=== PATIENT | female | born 1990 | race American Indian/Alaskan Native ===

== ENCOUNTER 2017-02-03 08:36 | Emergency (ER) | payer OTHER, MEDICAID ==
[2017-02-03 08:46] VITALS: BP 102/58
== END 2017-02-03 09:56 | disposition left against medical advice (07) ==
LOC: ED 08:36
DX: O26.892 Other specified pregnancy related conditions, second trimester (principal); M25.551 Pain in right hip; Z3A.18 18 weeks gestation of pregnancy; Z53.21 Procedure and treatment not carried out due to patient leaving prior to being seen by health care provider

== ENCOUNTER 2017-06-22 22:51 | Outpatient (CLI) | payer MEDICAID, OTHER ==
[2017-06-23] MEDS ORDERED: VISTARIL PO ONE (00:50)
== END 2017-06-23 00:54 | disposition home or self-care (01) ==
LOC: TRG 22:51
PROVIDERS: ATTEND Obstetrics & Gynecology Gynecology
DX: O47.1 False labor at or after 37 completed weeks of gestation (principal); Z3A.38 38 weeks gestation of pregnancy
CPT/HCPCS: Q0177

== ENCOUNTER 2017-06-30 23:40 | Outpatient (CLI) | payer MEDICAID ==
[2017-07-01] MEDS ORDERED: NITRATEST PAPER MC ONE (00:10)
[2017-07-01 00:11] VITALS: BP 117/60
--- NOTE | 2017-07-01 07:18 | Ultrasound Report ---
BIOPHYSICAL PROFILE: INDICATION: well being. COMPARISON: None similar at this institution. TECHNIQUE: Transabdominal ultrasound with Doppler interrogation. 2 - breathing movements 2 - movements 2 - posture and tone 2 - Qualitative amniotic fluid volume 8 - TOTAL SCORE OF POSSIBLE 8 Heart Rate (bpm) 143
== END 2017-07-01 03:13 | disposition home or self-care (01) ==
LOC: TRG 23:40
PROVIDERS: ATTEND Obstetrics & Gynecology
DX: O47.1 False labor at or after 37 completed weeks of gestation (principal); Z3A.39 39 weeks gestation of pregnancy
CPT/HCPCS: 59025; 76819

== ENCOUNTER 2017-08-13 05:44 | Day surgery (SDC) | payer MEDICAID ==
[2017-08-13] MEDS ORDERED: LACTATED RINGERS 1,000 ML IV SCH (06:00)
[2017-08-13] MEDS ORDERED: PEPCID PO NR (06:00)
[2017-08-13] MEDS ORDERED: VERSED IV NR (06:00)
[2017-08-13] MEDS ORDERED: REGLAN PO NR (06:00)
--- NOTE | 2017-08-13 06:45 | Short Stay Summary ---
Short Stay Documentation Date of service: 08/13/17 Narrative H&P: C/O: Permanent sterilization 27-year-old now presents for laparoscopic bilateral tubal ligation. She is a [facility] patient. Was offered other options of contraception including LARC's and declined She lost her 1st son to leukemia. Gynhx/Medhx/Sughx: Unremarkable Meds:None All:NKDA A: Desires permanent sterilization P: -We discussed the risks of surgery in detail, reviewed risk of injury to surrounding organs and tissues. All her questions were answered and she signed consent -Proceed to the OR for laparoscopic tubal ligation once available - History Past Medical History: No medical history Past Surgical History: No surgical history Social history: no significant social history, full code, no smoking, no alcohol abuse, no prescription drug abuse, no IV drug use - Allergies and Medications Current Medications: Allergies No Known Allergies Allergy (Verified 06/19/15 22:17) Home Medications Medication Instructions Recorded Confirmed Last Taken Type No Known Home Medications [No 08/08/17 08/08/17 Unknown History Reported Home Medications] Active Medications Famotidine (Pepcid) 20 mg PO PREOP NR Stop: 08/13/17 15:00 Lactated Ringer's (Lactated Ringers) 1,000 mls @ 75 mls/hr IV DIRECT MOMO Metoclopramide HCl (Reglan) 10 mg PO PREOP NR Stop: 08/13/17 15:00 Midazolam HCl (Versed) 2 mg IV PREOP NR Stop: 08/13/17 23:59 - Physical exam General appearance: no acute distress, well-nourished HEENT: Atraumatic Lungs: Clear to auscultation, Normal air movement Breasts: deferred Heart: Regular rate, Normal S1, Normal S2 Gastrointestinal: normal, normoactive bowel sounds, no distended, no masses, no guarding Female Genitourinary: normal Extremities: no ischemia Neurological: Normal speech, Strength at 5/5 X4 ext - Brief post op/procedure progress note Date of procedure: 08/13/17 Pre-op diagnosis: desires permanent sterilization Post-op diagnosis: same Procedure: Laparoscopic bilateral tubal ligation with fulguration Anesthesia: GETA Findings: Normal uterus tubes and ovaries bilaterally Surgeon: HEATHER PAEZ Estimated blood loss: none Pathology: none Condition: stable - Hospital course Hospital course: Uncomplicated postoperative course, she is discharged from PACU per protocol - Disposition Condition at discharge: Good Disposition: DC-01 TO HOME OR SELFCARE - Discharge Diagnoses (1) S/P laparoscopic procedure Status: Acute (2) S/P tubal ligation Status: Acute Short Stay Discharge Plan Activity: advance as tolerated, no driving until cleared by PCP (no driving on narcotics) Weight Bearing Status: Weight Bear as Tolerated Diet: regular Wound: open to air Follow up with: FABIAN ARRIOLA MD [Primary Care Provider] - 7 Days HEATHER PAEZ MD [Staff Physician] - 14 Days
[2017-08-13] MEDS ORDERED: NACL BACTERIOSTATIC INFILTRATI ONE (06:53)
--- NOTE | 2017-08-13 06:57 | Anesthesia Consultation ---
Anesthesia Consult and Med Hx Date of service: 08/13/17 - Airway Anesthetic Teeth Evaluation: Good ROM Head & Neck: Adequate Mental/Hyoid Distance: Adequate Mallampati Class: Class I Intubation Access Assessment: Good - Pulmonary Exam CTA: Yes - Cardiac Exam Cardiac Exam: RRR - Pre-Operative Health Status ASA Pre-Surgery Classification: ASA1 Proposed Anesthetic Plan: General - Pulmonary Hx Smoking: No Hx Asthma: No COPD: No Hx Pneumonia: No Hx Sleep Apnea: No (DARION PRE SCREEN NEGATIVE) - Cardiovascular System Hx Hypertension: No - Central Nervous System Hx Seizures: No Hx Psychiatric Problems: No - Endocrine Hx Renal Disease: No Hx End Stage Renal Disease: No Hx Hypothyroidism: No Hx Hyperthyroidism: No - Hematic Hx Anemia: Yes (NOT RECENT) Hx Sickle Cell Disease: No - Other Systems Hx Alcohol Use: No Hx Cancer: No
[2017-08-13] MEDS ORDERED: DILAUDID IV PRN (06:58)
--- NOTE | 2017-08-13 06:58 | Anesthesia Day of Surgery ---
Anesthesia Day of Surgery - Day of Surgery Patient Examined: Yes Patient H&P Reviewed: Yes Patient is NPO: Yes
[2017-08-13 07:09] LABS: Hematocrit 33.4 % (30.3-42.9); Hemoglobin 10.6 gm/dl (10.1-14.3)
[2017-08-13] MEDS ORDERED: MARCAINE 0.25% INFILTRATI ONE ×2 (07:15→08:08)
[2017-08-13] MEDS ORDERED: SUBLIMAZE ONE (07:25)
[2017-08-13] MEDS ORDERED: DIPRIVAN 10 MG/ML IV ONE (07:25)
[2017-08-13] MEDS ORDERED: XYLOCAINE CARDIAC IV ONE (07:49)
[2017-08-13] MEDS ORDERED: DECADRON ONE (07:49)
[2017-08-13] MEDS ORDERED: ZOFRAN ONE (07:49)
[2017-08-13] MEDS ORDERED: ZEMURON IV ONE (07:49)
[2017-08-13] MEDS ORDERED: PERCOCET 5/325 PO PRN (08:00)
[2017-08-13] MEDS ORDERED: ZOFRAN IV PRN (08:00)
[2017-08-13] MEDS ORDERED: LACTATED RINGERS 1,000 ML ONE (08:02)
[2017-08-13] MEDS ORDERED: ROBINUL ONE (08:04)
[2017-08-13] MEDS ORDERED: NEOSTIGMINE ONE (08:04)
[2017-08-13] MEDS ORDERED: TORADOL ONE (08:07)
[2017-08-13] MEDS ORDERED: NACL 0.9% IR ONE (08:08)
--- NOTE | 2017-08-13 08:49 | Operative Report ---
Operative Report Operative Report: DATE: 08/13/2017 PREOPERATIVE DIAGNOSIS: Desires permanent sterilization POSTOP DIAGNOSIS: As above NAME OF PROCEDURE: Laparoscopic bilateral tubal ligation with fulguration SURGEON: HEATHER PAEZ MD EMT/DISPATCHER: None ANESTHESIA: General EBL: None PATHOLOGY SPECIMEN: None URINE OUTPUT: 200 mL prior to procedure FINDINGS: Normal uterus tubes and ovaries bilaterally DESCRIPTION OF PROCEDURE: After informed consent, patient was taken to the operating room where she was prepped and draped in a sterile fashion. She was placed in dorsolithotomy position then a benton catheter was placed without difficulty . [employer] speculum speculum was placed in the patient's vagina and single-tooth was used to grab the anterior lip. A [employer] uterine manipulator was advanced into the patient's cervical os without difficulty. Attention was then turned to the patient's abdomen where 1/4 percent Marcaine was injected then a 1/2 cm incision was made in the umbilical fold. Towel clips were used to grab the umbilicus and this was elevated, varies needle was then advanced into the patient's abdomen carefully until 2 pops were felt. Water drop test confirmed intra-peritoneal placement then CO2 gas was used to obtain intra- abdominal insufflation. Patient's normal anatomy was visualized. Attention was then turned to the patient's suprapubic region where under direct visualization 5 mm trocar was advanced into the patient's abdomen without difficulty. Tubes were then grasped serially serially and cauterized in bipolar , 3 cm segment in each tube was fulgurised. All instruments were then withdrawn from the patient's abdomen under direct visualization and then the skin was closed in a subcuticular manner with 4-0 Monocryl. Instrument counts were correct 2; she tolerated the procedure well and was transferred the PACU in stable condition thank you
--- NOTE | 2017-08-13 09:19 | Post Anesthesia Evaluation ---
- Post Anesthesia Evaluation Patient Participated: Yes Airway Patent: Yes Stable Respiratory Function: Yes Nausea/Vomiting: No Temp > 96.8F: Yes Pain Manageable: Yes Adequeate Hydration: Yes Anesthesia Complications: No Block Receding Appropriately: Not Applicable Patient on Ventilator: No
[2017-08-13] MEDS ORDERED: NORCO 5/325 PO PRN (09:30)
[2017-08-13] MEDS ORDERED: TYLENOL PO PRN (09:30)
[2017-08-13] MEDS ORDERED: MOTRIN PO PRN (09:30)
[2017-08-13 12:03] VITALS: BP 141/93
== END 2017-08-13 09:52 | disposition home or self-care (01) ==
LOC: OR 05:44
PROVIDERS: ATTEND Obstetrics & Gynecology Gynecology
DX: Z30.2 Encounter for sterilization (principal); Z79.899 Other long term (current) drug therapy; D64.9 Anemia, unspecified
CPT/HCPCS: 36415; 58670; 81025; 85014; 85018; 86850; 86900; 86901; J1100; J1885; J2001; J2250; J2405; J2704; J2710; J3010; J7120